=== PATIENT | male | born 1945 | race Caucasian/White ===

== ENCOUNTER 2016-06-15 04:56 | Inpatient (IN) | payer MEDICARE, BC ==
[2016-06-08 10:43] LABS: BASOPHILS 0.2 %; BASOPHILS ABSOLUTE 0.02 10/3/uL (0.0-0.16); EOSINOPHILS 4.5 %; EOSINOPHILS ABSOLUTE 0.37 10/3/uL (0.0-0.53); HEMOGLOBIN 12.2 g/dL (13.6-17.8); IMMATURE GRANULOCYTES 0.1 %; IMMATURE GRANULOCYTES ABSOLUTE 0.01 10/3/uL (0.0-0.11); LYMPHOCYTES 34.4 %; LYMPHOCYTES ABSOLUTE 2.81 10/3/uL (0.67-4.30); MEAN CORPUS HGB CONC 33.5 g/dL (32.0-36.0); MEAN CORPUSCULAR HEMOGLOB 32.8 pg (26.0-34.0); MEAN CORPUSCULAR VOLUME 97.8 fL (80-100); MEAN PLATELET VOLUME 11.6 fL (9.2-13.0); MONOCYTES 6.6 %; MONOCYTES ABSOLUTE 0.54 10/3/uL (0.21-1.20); NEUTROPHILS 54.2 %; NEUTROPHILS ABSOLUTE 4.42 10/3/uL (2.02-8.40); PLATELET COUNT 140 10/3/uL (150-400); RBC DISTRIBUTION WIDTH 14.5 % (12.0-16.0); RED CELL COUNT 3.72 10/6/uL (4.7-6.1); WHITE BLOOD CELLS 8.2 10/3/uL (4.5-10.5)
[2016-06-08 10:44] LABS: HEMATOCRIT 36.4 % (40.0-51.0); MANUAL DIFF NO %
[2016-06-08 10:50] LABS: INTERNATIONAL NORMAL RATI 1.3 UNITS (-)
[2016-06-08 10:52] LABS: ASCORBIC ACID (UR NOT ORDER) NEG (NEG); BILIRUBIN, URINE NEGATIVE (NEG); KETONE, URINE NEGATIVE (NEG); LEUKOCYTE ESTERASE(NOT OR NEG (NEG); WBC (NOT ORDERED) (RFLEX) 2 (0-5)
[2016-06-08 10:54] LABS: PROTIME (NOT ORD) 15.9 SEC (12.0-14.5)
[2016-06-08 10:56] LABS: BUN (BLOOD UREA NITROGEN) 9 MG/DL (6-23); CALCIUM, SERUM 8.2 MG/DL (8.5-10.4); CHLORIDE, SERUM 105 MMOL/L (96-112); CO2 (CARBON DIOXIDE) 30 MMOL/L (24-34); CREATININE 0.79 MG/DL (0.70-1.30); GFR AFRICAN AMERICAN 105 ML/MIN (>=60); GFR NON AFRICAN AMERICAN 90 ML/MIN (>=60); GLUCOSE, SERUM 112 MG/DL (60-99); POTASSIUM, SERUM 4.5 MMOL/L (3.5-5.3); SODIUM, SERUM 143 MMOL/L (135-148)
--- NOTE | ~2016-06-15 | CN ---
Consultation Report [place] [address] [place]. [address] NAME: CHEYENNE BOOTHE JR : 45 STATUS : ADM IN PAT#: [id number] AGE: 71 ADM/REG DATE : 06/15/16 MR#: [id number] REPORT SERV DATE: 06/15/16 DICTATED BY: CHARLA DIAZ DATE: 06/15/16 REPORT STATUS : Draft TRANSCRIBED BY: MODL DATE: 06/15/16 CONSULTATION NOTE DATE OF CONSULTATION: 06/15/2016 REASON FOR CONSULT: Medical management. HISTORY OF PRESENT ILLNESS: This patient is a 71-year-old gentleman, who underwent a left reverse total shoulder by Dr. Denny on 06/15/2016. He does present with a history of diabetes mellitus type 2, hypertension, anxiety, coronary artery disease, hypothyroidism. The patient is followed by his primary care and reproduction technician. PAST MEDICAL HISTORY: 1. Hypertension. 2. Anxiety. 3. Osteoarthritis. 4. Coronary artery disease. 5. Cardiac stent in March 2008. 6. Diabetes mellitus type 2, diet controlled. 7. Hyperlipidemia. 8. Hypothyroidism. 9. Gastroesophageal reflux disease. 10.Chronic obstructive pulmonary disease. PAST SURGICAL HISTORY: 1. Lumbar fusion. 2. Trigger finger, left hand. 3. Carotid artery. 4. Bilateral cataracts. 5. Left hand surgery. 6. Vascular stent in March of 2008. 7. Carpal tunnel release left and right. SOCIAL HISTORY: The patient is been 41 years. Retired. one child. Continues to smoke and admits to occasional alcohol use. Denies illicit drug use. CURRENT MEDICATIONS: 1. Aspirin 81 mg one daily. 2. Cartia XT 120 mg one daily. 3. Avapro 150 mg daily. 4. Prevacid 30 mg one p.o. daily. 5. Levothyroxine 75 mcg tablet p.o. daily. 6. Lopressor 25 mg one p.o. daily. 7. Zoloft 100 mg one p.o. daily. Consultation Report [place] [id number] [place]. [address] NAME: CHEYENNE BOOTHE : 45 STATUS : ADM IN PAT#: [id number] AGE: 71 ADM/REG DATE : 06/15/16 MR#: [id number] REPORT SERV DATE: 06/15/16 DICTATED BY: CHARLA DIAZ DATE: 06/15/16 REPORT STATUS : Draft TRANSCRIBED BY: MADI DATE: 06/15/16 8. Zocor 20 mg one p.o. daily. 9. Spironolactone 25 mg one p.o. daily. 10.Torsemide 20 mg one p.o. daily. LABORATORY DATA: CBC is 8.2, hemoglobin 12.2, hematocrit 36.4, platelet count 140. Sodium 143, potassium 4.5, chloride is 105, BUN is 9, creatinine 0.79, glucose is 112, and calcium is 8.2. IMAGING: Chest x-ray on 06/15/2016, mild venous congestion and bibasilar atelectasis, with trace left pleural fluid. Surgical changes from recent left shoulder arthroscopy. PHYSICAL EXAMINATION: VITAL SIGNS: O2 sats 93% on 3 L, pulse is 56, respirations are 18, and blood pressure to be obtained. GENERAL: This patient wakes to voice, is oriented, in no acute distress. NECK: No JVD. CHEST: Nontender. Lungs clear bilateral. No wheezes, rales, or rhonchi. CARDIOVASCULAR: Regular rate and rhythm. No murmurs, rubs, or gallops. ABDOMEN: Soft and nontender. Bowel sounds are active. EXTREMITIES: No edema. Left upper extremity in wedge. ASSESSMENT AND PLAN: 1. Diabetes mellitus type 2. The patient states blood sugars run from 120 to 125, diet controlled at this time. Primary care has discontinued metformin. We will place the patient on a sliding scale insulin level 1. Continue to monitor. Place the patient also on a diabetic diet. 2. Hypertension, the patient states blood pressure at home runs 140s/70s to 80s. We will continue home medications and monitor the patient. 3. Status post left reverse total shoulder by Dr. Denny on 06/15/2016. Plan of care per Orthopedic. 4. Gastroesophageal reflux disease, continue the patient's Prevacid. 5. Chronic obstructive pulmonary disease, the patient states he is no longer using CPAP at home. He is on no oxygen also at home. We will continue to monitor. Encourage ICS while awake. 6. Hypothyroidism, we will continue the patient's Synthroid. Thank you for this consultation. We will continue to follow the patient. [facility]/MADI Charla Diaz NP / [id number] Consultation Report [place] [address] [place]. [address] NAME: CHEYENNE BOOTHE JR : 45 STATUS : ADM IN PAT#: [id number] AGE: 71 ADM/REG DATE : 06/15/16 MR#: [id number] REPORT SERV DATE: 06/15/16 DICTATED BY: CHARLA DIAZ DATE: 06/15/16 REPORT STATUS : Draft TRANSCRIBED BY: MADI DATE: 06/15/16 CC: Hiren Denny M.D.
--- NOTE | ~2016-06-15 | OP ---
Record Of Operation [facility] [address] [place]. [address] NAME: CHEYENNE BOOTHE JR : 45 STATUS : ADM IN [facility]#: [id number] AGE: 71 ADM/REG DATE : 06/15/16 MR#: [id number] REPORT SERV DATE: 06/16/16 DICTATED BY: HIREN DENNY DATE: 06/15/16 REPORT STATUS : Draft TRANSCRIBED BY: MODL DATE: 06/15/16 DATE OF PROCEDURE: 06/15/2016 OPERATIVE SURGEON: Hiren Denny M.D. OPERATIVE TONSORIAL ARTIST: LORENA Qiu COMPLICATIONS: None. ESTIMATED BLOOD LOSS: Less than 75 mL. DISPOSITION: Stable to recovery room. ANESTHESIA: General with interscalene block augmentation for postoperative pain control. PREOPERATIVE DIAGNOSES: 1. Left shoulder pain. 2. 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 3. Acromioclavicular joint osteoarthritis. POSTOPERATIVE DIAGNOSES: 1. Left shoulder pain. 2. 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 3. Acromioclavicular joint osteoarthritis. OPERATIVE PROCEDURE: 1. Left shoulder examination under anesthesia. 2. Left reverse total shoulder arthroplasty using Tornier Aequalis reverse total shoulder system. 3. Distal clavicular resection. 4. Humeral head autograft impaction technique. IMPLANTS USED: One glenoid base plate, 142 mm glenoid sphere with a 10 degree inferior tilt. 142 mm metaphyseal component. 112 x 100 mm humeral stem, 142 x 12 mm polyethylene insert, and one cement restrictor, as well as four 4.5 mm screws, two locking and two nonlocking of the appropriate size. PROCEDURE: The diagnoses listed above as well as the recommended surgical procedure, risks, and benefits thereof were discussed in full detail with Mr. Boothe and family on the morning of 06/15/2016. The patient and family asked appropriate questions which were answered to their satisfaction. Informed consent was signed, witnessed and placed in the chart. The appropriate upper extremity was marked for confirmation and an interscalene block was placed by the anesthesia team with good success. The patient was then wheeled to the Record Of Operation [place] [id number] [facility] [place]. [address] NAME: CHEYENNE BOOTHE JR : 45 STATUS : ADM IN PAT#: [id number] AGE: 71 ADM/REG DATE : 06/15/16 MR#: [id number] REPORT SERV DATE: 06/16/16 DICTATED BY: HIREN DENNY DATE: 06/15/16 REPORT STATUS : Draft TRANSCRIBED BY: MADI DATE: 06/15/16 operative arena were general endotracheal anesthesia was administered. The patient was placed in the beachchair positioner with all nonoperative extremities well padded and secured for the duration of the case. The patient received 1 gram of Ancef for perioperative antibiosis. The appropriate operative upper extremity was prepped and draped in a typical orthopedic sterile fashion. A surgical pause was performed confirming both the correct patient as well as proper surgical site and procedure. All present were in agreement. All standard anatomic landmarks as well as the superolateral incision site were demarcated using a sterile marking pen. 15 cc of 0.5% Marcaine with epinephrine was injected into the subcuticular layers along the operative incision site. A 10 blade was then used to make an 8 cm incision in the coronal plane off the lateral border of the acromion. Soft tissues were dissected down sharply to expose the deltotrapezius fascia. Full thickness cutaneous flaps were reflected anteriorly and posteriorly. The acromioclavicular joint was identified and electrocautery was used to skeletonize the distal end of the clavicle. A skid was used to protect those structures inferiorly and an oscillating saw was used to remove the distal most 1 cm of clavicle. All additional osteophytes and sharp bone prominences were removed using a rongeur. A raphe was identified in the anterolateral deltoid and then divided 4 cm distal to the lateral border of the acromion. A marking suture was placed in the distal most extent of the split in the deltoid to avoid further dissection and injury to the axillary nerve or those vessels traveling with it. A full deltoid flap was reflected anteriorly. The remnants of the rotator cuff were identified deep to the deltoid. The patient had a large rotator cuff tear with attritional rupture. There was fatty infiltrate throughout the remaining rotator cuff tissue confirming its dysfunction. At this juncture, the rotator cuff tear was extended and the remnants of the infraspinatus were reflected posteriorly. The biceps tendon was located and found to be highly frayed. A bicipital tenolysis was performed. Next, the humeral head was fully exposed. There was severe arthritic change involving both the humeral head as well as the glenoid. A monoblock cutting guide was placed through the hinge point and down the shaft of the proximal humerus. An oscillating saw was used to make a proximal humeral cut. The humeral head was removed and placed on the back table. Cancellous bone was harvested from within to provide for later autograft impaction technique. Next, the playboy retractor was placed under the inferior margin of the glenoid and the humerus was retracted posteriorly and inferiorly out of the way of the glenoid. The bicipital labral complex and all residual labrum was excised using electrocautery. The center point of the glenoid was identified using the anterior inferior referencing guide and a central drill hole was created. A 36 mm reamer was used to ream the glenoid down to a nice healthy bleeding bony surface. Great care was taken to angle the reamer approximately 10 degrees inferiorly and to cheat the central peg hole inferiorly in relation to the overall glenoid. Record Of Operation [place] [id number] [facility] [place]. [address] NAME: CHEYENNE BOOTHE EDMALLORY SHAH : 45 STATUS : ADM IN PAT#: [id number] AGE: 71 ADM/REG DATE : 06/15/16 MR#: [id number] REPORT SERV DATE: 06/16/16 DICTATED BY: HIREN DENNY DATE: 06/15/16 REPORT STATUS : Draft TRANSCRIBED BY: MADI DATE: 06/15/16 The glenoid was reamed appropriately. At this juncture, the central peg hole was drilled again increasing the size up to 8 mm. The glenoid base plate was then opened and assembled on the back table with its insertion device. The cancellous autograft was impacted into the PEG hole. The glenoid base plate was then placed in its PEG hole and impacted appropriately. An excellent scratch fit was obtained. All four holes were drilled and filled with the appropriately sized holes. Both of these screws obtained excellent bicortical purchase into the base of the corticoid superiorly and down the scapular pillar inferiorly. The base plate was then tested and found to be very secure. A 36 mm glenosphere was then opened and inserted into its Craft taper. It was impacted down and the Craft taper was set. The central set screw was then tightened down for secondary security. Next, we returned to the final preparation of the humerus. The diaphyseal reamers were used in increasing sizes until cortical chatter was obtained. The 36 mm hand metaphyseal reamer was then used next followed by the cheese grater to core out the proximal metaphysis. At this juncture the humeral stem with a 36 mm metaphysis was trialed and found to fit appropriately. These were then opened and assembled on the back table with their insertion devices. A cement restrictor was placed 2 canal diameters distal to the distal most extent of the prosthesis. Pulsatile lavage was used to irrigate the shaft of the humerus. An end tip suction catheter was placed down the shaft of the humerus. Third generation cementation techniques were employed with the cement being mixed under vacuum pressure. Vancomycin was placed in the cement. Next, the cement was placed down the shaft of the humerus and the suction tip catheter was removed. The prosthesis was then placed down the shaft of the humerus with the appropriate retroversion measured with retroversion guide parallel to the forearm. Next, the cement was allowed to harden. The polyethylene liner was tested and the appropriate size was selected. This was opened and impacted into place for a nice snap fit. The glenohumeral joint was then reduced and found to have excellent tension as well as appropriate range of motion and excellent stability. The deep layers were then irrigated with copious amount of pulsatile lavage. The remnants of the rotator cuff were then closed for maximal available coverage of the prosthesis. They were closed with #2 Fiberwire through the actual prosthesis. This gave us a great tie-down point laterally. Next, the deltoid was closed through bone holes on the anterior and lateral borders of the acromion. An excellent closure of the deltoid was obtained. Finally, this layer again was washed with copious amounts of pulsatile lavage and the subcutaneous layers were closed with 2-0 undyed Vicryl. The subcuticular layers were closed in a running Monocryl stitch in the cutaneous layer. Steri-Strips were placed on the skin. Sterile dressing was secured with Metapore tape and the patient was placed in an ultra sling for temporary immobilization. An ice pack was provided. The patient was then awakened from anesthesia without difficult. She was transferred to post-anesthesia care unit in stable condition where her postoperative examination was within normal limits understanding that the interscalene block was still in effect. A lengthy discussion was held with the patient and family detailing all operative findings as well as procedures performed with all questions answered to their satisfaction. Record Of Operation [facility] [address] [place]. [address] NAME: CHEYENNE BOOTHE JR : 45 STATUS : ADM IN [facility]#: [id number] AGE: 71 ADM/REG DATE : 06/15/16 MR#: [id number] REPORT SERV DATE: 06/16/16 DICTATED BY: HIREN DENNY. DATE: 06/15/16 REPORT STATUS : Draft TRANSCRIBED BY: MODL DATE: 06/15/16 [facility]/MODL Hiren Denny M.D. / [id number] CC: Hiren Denny M.D.
[~2016-06-15 04:56] MED LIST: ASAB PO; AVAP150 OR; CARTIA XT120 MG/24 PO; DEMA20 PO; GLUCPH PO; HYDROCHLOROT25 MG PO; LEVOTHYROXIN75 MCG PO; LOP25 PO; NORV10 PO; PREV30 PO; SPIRO25 PO; ZOCOR20 PO; ZOL100 PO
[2016-06-16 06:01] LABS: HEMATOCRIT 33.8 % (40.0-51.0); HEMOGLOBIN 10.9 g/dL (13.6-17.8)
[2016-06-16 06:08] LABS: BUN (BLOOD UREA NITROGEN) 10 MG/DL (6-23); CALCIUM, SERUM 7.5 MG/DL (8.5-10.4); CHLORIDE, SERUM 106 MMOL/L (96-112); CREATININE 0.71 MG/DL (0.70-1.30); GFR AFRICAN AMERICAN 109 ML/MIN (>=60); GFR NON AFRICAN AMERICAN 94 ML/MIN (>=60); GLUCOSE, SERUM 125 MG/DL (60-99); POTASSIUM, SERUM 4.2 MMOL/L (3.5-5.3); SODIUM, SERUM 141 MMOL/L (135-148)
[2016-06-16 06:09] LABS: CO2 (CARBON DIOXIDE) 25 MMOL/L (24-34)
[2016-06-16] MEDS ORDERED: PERCOCET 10/3251 TAB PO (08:40)
[2016-06-16] MEDS ORDERED: OXYCON10 PO (08:40)
[2016-06-16] MEDS ORDERED: ZOFRAN4 PO (08:41)
[2016-06-16] MEDS ORDERED: ASAEC PO (08:41)
== END 2016-06-16 16:19 | disposition home or self-care (01) | DRG 483 ==
LOC: SDC/OF 04:56 → PACU 09:46 → 3SO 10:45
PROVIDERS: Specialist
PROC: 0PUD07Z Supplement Left Humeral Head with Autologous Tissue Substitute, Open Approach (ICD-10-PCS; 2016-06-15)
PROC: 0PBB0ZZ Excision of Left Clavicle, Open Approach (ICD-10-PCS; 2016-06-15)
PROC: 0RRK00Z Replacement of Left Shoulder Joint with Reverse Ball and Socket Synthetic Substitute, Open Approach (ICD-10-PCS; principal; 2016-06-15 06:30)
DX: M19.012 Primary osteoarthritis, left shoulder (principal); E11.9 Type 2 diabetes mellitus without complications; I10 Essential (primary) hypertension; I25.10 Atherosclerotic heart disease of native coronary artery without angina pectoris; F17.210 Nicotine dependence, cigarettes, uncomplicated; K21.9 Gastro-esophageal reflux disease without esophagitis
CPT/HCPCS: 36415; 71010; 73030-LT; 80048; 81001; 82962; 85014; 85018; 85025; 85610; 86850; 86900; 86901; 87641; 88305; 88311; 93005; 94640; 97110-GP; 97116-GP; 97162-GP; A9270-GY; C1713; C1776; J0330; J0690; J2250; J2270; J2370; J2405; J2710; J2795; J3010

== ENCOUNTER 2016-07-16 17:12 | Emergency (ER) | payer MEDICARE, BC ==
[2016-07-16 15:11] LABS: WBC (NOT ORDERED) (RFLEX) 0 (0-5)
[2016-07-16 15:15] LABS: BASOPHILS 0.1 %; BASOPHILS ABSOLUTE 0.01 10/3/uL (0.0-0.16); EOSINOPHILS 3.6 %; EOSINOPHILS ABSOLUTE 0.25 10/3/uL (0.0-0.53); ER CBC TAT 0 Hrs 08 Mins; HEMOGLOBIN 11.2 g/dL (13.6-17.8); IMMATURE GRANULOCYTES 0.1 %; IMMATURE GRANULOCYTES ABSOLUTE 0.01 10/3/uL (0.0-0.11); LYMPHOCYTES 43.2 %; LYMPHOCYTES ABSOLUTE 2.98 10/3/uL (0.67-4.30); MEAN CORPUS HGB CONC 32.9 g/dL (32.0-36.0); MEAN CORPUSCULAR HEMOGLOB 32.4 pg (26.0-34.0); MEAN CORPUSCULAR VOLUME 98.3 fL (80-100); MEAN PLATELET VOLUME 11.2 fL (9.2-13.0); MONOCYTES 7.2 %; NEUTROPHILS 45.8 %; NEUTROPHILS ABSOLUTE 3.15 10/3/uL (2.02-8.40); PLATELET COUNT 179 10/3/uL (150-400); RBC DISTRIBUTION WIDTH 14.5 % (12.0-16.0); RED CELL COUNT 3.46 10/6/uL (4.7-6.1); WHITE BLOOD CELLS 6.9 10/3/uL (4.5-10.5)
[2016-07-16 15:18] LABS: ASCORBIC ACID (UR NOT ORDER) NEG (NEG); BILIRUBIN, URINE NEGATIVE (NEG); ER URINALYSIS TAT 0 Hrs 11 Mins; KETONE, URINE NEGATIVE (NEG); LEUKOCYTE ESTERASE(NOT OR NEG (NEG); NITRITE (URINE) NEG (NEG)
[2016-07-16 15:19] LABS: MANUAL DIFF NO %
[2016-07-16 15:31] LABS: A/G RATIO 0.5 (0.7-1.9); ALBUMIN 2.3 G/DL (3.5-5.0); ALKALINE PHOSPHATASE 88 U/L (45-117); BUN (BLOOD UREA NITROGEN) 9 MG/DL (6-23); CALCIUM, SERUM 7.9 MG/DL (8.5-10.4); CHLORIDE, SERUM 109 MMOL/L (96-112); CO2 (CARBON DIOXIDE) 26 MMOL/L (24-34); CREATININE 0.74 MG/DL (0.70-1.30); GFR AFRICAN AMERICAN 108 ML/MIN (>=60); GFR NON AFRICAN AMERICAN 93 ML/MIN (>=60); GLUCOSE, SERUM 102 MG/DL (60-99); POTASSIUM, SERUM 3.7 MMOL/L (3.5-5.3); SGOT(AST) 44 U/L (5-40); SGPT(ALT) 30 U/L (5-65); SODIUM, SERUM 144 MMOL/L (135-148); TOTAL BILIRUBIN 1.3 MG/DL (0-1.2); TOTAL PROTEIN 7.3 G/DL (6.0-8.5)
[2016-07-16 15:54] LABS: INTERNATIONAL NORMAL RATI 1.3 UNITS (-); PROTIME (NOT ORD) 16.1 SEC (12.0-14.5)
[2016-07-16 15:55] LABS: PARTIAL THROMBO TIME 40.2 SEC (22.5-37.2)
[~2016-07-16 17:12] MED LIST changes: +ASAEC PO; +OXYCON10 PO; +PERCOCET 10/3251 TAB PO; +ZOFRAN4 PO
== END 2016-07-16 17:15 | disposition home or self-care (01) ==
LOC: ER 17:12
PROVIDERS: Hospitalist; Physician Assistant
DX: R18.8 Other ascites (principal); I10 Essential (primary) hypertension; K21.9 Gastro-esophageal reflux disease without esophagitis; Z87.891 Personal history of nicotine dependence; Z95.5 Presence of coronary angioplasty implant and graft; Z79.84 Long term (current) use of oral hypoglycemic drugs; Z79.82 Long term (current) use of aspirin; Z79.899 Other long term (current) drug therapy
CPT/HCPCS: 74176; 80053; 81001; 83690; 85025; 85610; 85730; 99284